=== PATIENT | female | born 1955 | race Caucasian/White ===

== ENCOUNTER 2019-03-08 10:51 | Day surgery (SDC) | payer MEDICARE, OTHER ==
[~2019-03-08] VITALS: Ht 154.9 cm; Wt 84.7 kg
[~2019-03-08 10:51] MED LIST: AMLODIPINE; ATORVASTATIN; BENA40TA56 PO; CLOP75TA19 PO; FAMOTIDINE; GLIPIZIDE; INSU100V19 SC; LOSARTAN; METF-849 PO; METOPROLOL; SITA50TA2 PO
[2019-03-08 11:43] VITALS: Ht 154.9 cm; Wt 84.7 kg
[2019-03-08 12:31] VITALS: BP 134/79; PULSE 75; RESP 16
[2019-03-08] MEDS ORDERED: PROPOFOL 20 ML ONE (13:15)
[2019-03-08 13:54] VITALS: BP 142/83; PULSE 69; RESP 14
[2019-03-08 14:12] VITALS: BP 174/81; PULSE 62; RESP 16
== END 2019-03-08 15:36 | disposition home or self-care (01) ==
LOC: GIL 10:51
PROVIDERS: ATTEND Internal Medicine Gastroenterology
DX: R19.5 Other fecal abnormalities (principal); K64.8 Other hemorrhoids; K57.30 Diverticulosis of large intestine without perforation or abscess without bleeding; E11.9 Type 2 diabetes mellitus without complications; I12.9 Hypertensive chronic kidney disease with stage 1 through stage 4 chronic kidney disease, or unspecified chronic kidney disease; N18.9 Chronic kidney disease, unspecified; Z79.4 Long term (current) use of insulin
CPT/HCPCS: 82962